=== PATIENT | female | born 2000 | race Caucasian/White ===

== ENCOUNTER 2023-09-09 07:34 | Observation (INO) | payer OTHER ==
[~2023-09-09] VITALS: Ht 167.6 cm; Wt 73.1 kg
[2023-09-09] VITALS (7 sets, daily range): BP systolic 99–107; BP diastolic 51–67; TEMP 97.7–98.8; O2SAT 96–98
[~2023-09-09 07:34] MED LIST: MULTTAB20 PO; PROA1AER2 IN
[2023-09-09] MEDS ORDERED: ceFAZolin SOD 2 GM in IV 1 EA IV ONE (08:25)
[2023-09-09] MEDS ORDERED: LR 1,000 ML IV SCH ×2 (08:25→14:05)
[2023-09-09] MEDS ORDERED: HEPARIN SOD (PORCINE) 5000UNITS/ML 1ML VIAL/SYRINGE SQ ONE (08:25)
[2023-09-09] MEDS ORDERED: propofoL 200 MG/20 ML VIAL As Ordered ONE ×2 (08:40→10:52)
[2023-09-09] MEDS ORDERED: LIDOCAINE 2% 100MG/5ML SDV (FOR ANES.) As Ordered ONE (08:40)
[2023-09-09] MEDS ORDERED: ROCURONIUM BROMIDE 50MG/5ML VIAL As Ordered ONE ×3 (08:40→11:44)
[2023-09-09] MEDS ORDERED: ONDANSETRON 4MG 2ML VIAL As Ordered ONE (08:40)
[2023-09-09] MEDS ORDERED: SUGAMMADEX SODIUM 500 MG/5 ML VIAL (BRIDION) As Ordered ONE (08:40)
[2023-09-09] MEDS ORDERED: fentaNYL 250 MCG/5 ML INJECTION As Ordered ONE (08:41)
[2023-09-09] MEDS ORDERED: MIDAZOLAM INJ 2MG/2ML VIAL As Ordered ONE (08:41)
[2023-09-09] MEDS ORDERED: SCOPOLAMINE 1MG TRANSDERMAL PATCH TOP ONE (08:45)
[2023-09-09] MEDS ORDERED: SEVOFLURANE INHAL SOLN 250 ML BTL As Ordered ONE (09:13)
[2023-09-09] MEDS ORDERED: dexmedeTOMIDine (4MCG/ML)200MCG/50ML BTL (PRECEDEX) As Ordered ONE (09:21)
[2023-09-09] MEDS ORDERED: GENTAMICIN SULF 80MG/2ML VIAL As Ordered ONE (09:29)
[2023-09-09] MEDS ORDERED: PHENYLephrine 500MCG 5ML (100MCG/ML) SYRINGE As Ordered ONE (10:49)
[2023-09-09] MEDS ORDERED: ePHEDrine SULFATE 25 MG/5 ML(5MG/ML) SYRINGE As Ordered ONE (10:49)
[2023-09-09] MEDS ORDERED: ACETAMINOPHEN 1000MG 100ML IV BAG As Ordered ONE (10:56)
[2023-09-09] MEDS ORDERED: HYDROmorphone HCL 2MG/ML 1ML VIAL As Ordered ONE (11:38)
[2023-09-09] MEDS ORDERED: ceFAZolin 2 GM/D5W 50 ML IV BAG As Ordered ONE (13:52)
[2023-09-09] MEDS ORDERED: fentaNYL 100 MCG/2 ML INJECTION IV PRN (14:05)
[2023-09-09] MEDS ORDERED: HYDROMORPHONE HCL 0.5 MG/ 0.5 ML SYRINGE IV PRN (14:05)
[2023-09-09] MEDS ORDERED: ONDANSETRON 4MG 2ML VIAL IV PRN ×2 (14:05→14:50)
[2023-09-09] MEDS ORDERED: oxyCODONE 5MG TAB PO PRN (14:05)
[2023-09-09] MEDS ORDERED: ACETAMINOPHEN TAB 650MG DOSE (2X325MG) PO PRN (14:50)
[2023-09-09] MEDS: PERCOCET 5MG/325MG TAB PO PRN ×2 (15:44→22:45)
[2023-09-09] MEDS: LR 1,000 ML IV SCH ×2 (15:53→23:59)
[2023-09-09] MEDS: ceFAZolin SOD 1 GM in D5W MINI-BAG PLUS 50 ML IV SCH (18:03)
[2023-09-09] MEDS: traMADol 50 MG TAB PO PRN (19:36)
[2023-09-10] MEDS: ceFAZolin SOD 1 GM in D5W MINI-BAG PLUS 50 ML IV SCH (03:12)
[2023-09-10] MEDS: PERCOCET 5MG/325MG TAB PO PRN ×3 (03:12→12:26)
[2023-09-10 03:30] VITALS: BP 105/51; TEMP 97.7; O2SAT 98
[2023-09-10] MEDS: traMADol 50 MG TAB PO PRN (06:33)
[2023-09-10 07:30] VITALS: BP 105/61; TEMP 97.6; O2SAT 97
[2023-09-10] MEDS ORDERED: PERCOCET PO (09:05)
[2023-09-10 11:30] VITALS: BP 105/78; TEMP 98.8; O2SAT 97
== END 2023-09-10 12:30 | disposition home or self-care (01) ==
LOC: M SDC 07:34 → M RR INP 07:35 → M MS5PR 15:30
PROVIDERS: ADMIT Plastic Surgery Surgery of the Hand; ATTEND Plastic Surgery Surgery of the Hand
DX: N62 Hypertrophy of breast (principal); D68.00 Von Willebrand disease, unspecified; D68.51 Activated protein C resistance; D64.9 Anemia, unspecified; E05.90 Thyrotoxicosis, unspecified without thyrotoxic crisis or storm; Z79.899 Other long term (current) drug therapy; Z79.51 Long term (current) use of inhaled steroids; Z88.2 Allergy status to sulfonamides; Z88.1 Allergy status to other antibiotic agents
CPT/HCPCS: 19318; 81025; 87635; 88305; 96365; 96366; C9290; J0131; J0665; J0690; J1100; J1170; J1580; J2250; J2371; J2405; J3010